=== PATIENT | male | born 1970 | race African-American/Black ===

== ENCOUNTER 2022-06-27 22:58 | Inpatient (IN) | payer OTHER ==
[~2022-06-27] VITALS: Ht 180.3 cm; Wt 97.1 kg
[2022-06-28 00:31] LABS: BASOPHILS % (AUTO) 0.3 % (0.0-2.0); HEMATOCRIT 31 % (39-51); HEMOGLOBIN 9.5 g/dL (13.5-17.5); LYMPHOCYTES # (AUTO) 0.9 K/uL (0.8-4.8); LYMPHOCYTES % (AUTO) 8.6 % (20.0-44.0); MEAN CORPUSCULAR HGB CONC 31 g/dl (31.0-36.0); MEAN CORPUSCULAR VOLUME 80 fL (80-96); MONOCYTES # (AUTO) 0.7 K/uL (0.1-1.30); MONOCYTES % (AUTO) 6.4 % (2.0-12.0); NEUTROPHILS # (AUTO) 9.3 K/uL (1.8-8.9); NEUTROPHILS % (AUTO) 83.7 % (43.0-81.0); PLATELET COUNT (AUTO) 483 K/uL (150-450); WHITE BLOOD COUNT (AUTO) 11.1 K/uL (4.3-11.0)
[2022-06-28 00:36] LABS: CALCIUM, SERUM 6.5 mg/dL (8.5-10.1); CARBON DIOXIDE 20 mmol/L (21-32); CHLORIDE 102 mmol/L (98-107); CREATININE 4.8 mg/dL (0.6-1.3); GLUCOSE 102 mg/dL (74-106); POTASSIUM 3.8 mmol/L (3.5-5.1); SODIUM SERUM 135 mmol/L (136-145); UREA NITROGEN, BLOOD 76 mg/dL (7-18)
[2022-06-28 00:45] LABS: ALANINE AMINOTRANSFERASE 115 U/L (12-78); ALBUMIN 2.3 g/dL (3.4-5.0); ALCOHOL, BLOOD < 3 mg/dL (0-0); ALKALINE PHOSPHATASE 245 U/L (46-116); ASPARTATE AMINOTRANSFERASE 75 U/L (15-37); BILIRUBIN,DIRECT 0.1 mg/dL (0.0-0.2); BILIRUBIN,TOTAL 0.3 mg/dL (0.2-1.0); TOTAL PROTEIN, SERUM 7.5 g/dL (6.4-8.2)
[2022-06-28 01:05] LABS: ACETAMINOPHEN 0 ug/ml (10-30)
[2022-06-28] MEDS ORDERED: hydrALAZINE HCL IV 20 MG VIAL ONE (01:11)
[2022-06-28 01:26] LABS: BILIRUBIN,URINE NEGATIVE (NEGATIVE); COLOR,URINE YELLOW (YELLOW); LEUKOCYTE ESTERASE ,URINE NEGATIVE (NEGATIVE); NITRITE, URINE NEGATIVE (NEGATIVE); PROTEIN,URINE 3+ mg/dl (NEGATIVE); UGLUCOSE NEGATIVE (NEGATIVE); UROBILINOGEN,URINE 0.2 EU/dL (0.2)
[2022-06-28] MEDS ORDERED: hydrALAZINE HCL IV 20 MG VIAL IV ONE ×2 (01:30→02:30)
[2022-06-28] MEDS ORDERED: HALOPERIDOL 5 MG TABLET ONE (01:42)
[2022-06-28] MEDS ORDERED: HALOPERIDOL 1 MG TABLET PO ONE (02:00)
[2022-06-28] MEDS ORDERED: MAGNESIUM HYDROXIDE 30 ML UDC PO PRN (02:30)
[2022-06-28] MEDS ORDERED: MAG HYDROX/AL HYDROX/SIMETH 30 ML UDC PO PRN (02:30)
[2022-06-28] MEDS ORDERED: Z GUARD REMEDY 4 OZ OINT TP PRN (02:30)
[2022-06-28] MEDS ORDERED: MORPHINE SULFATE INJ 2 MG/ML DISP.SYRIN IV PRN (02:30)
[2022-06-28] MEDS ORDERED: IV NS 0.9% 1,000 ML IV PRN ×2 (02:30→09:15)
[2022-06-28 02:34] LABS: BACTERIA,URINE Rare /HPF (None Seen); SQUAMOUS EPITHELIAL CELL,UR Few /HPF (None Seen); WBC,URINE 0-2 /HPF (0-3)
[2022-06-28 04:45] VITALS: BP 167/115
[2022-06-28 05:39] VITALS: BP 167/115
[2022-06-28] MEDS: hydrALAZINE HCL IV 20 MG VIAL IV PRN ×2 (06:00→12:48)
[2022-06-28] MEDS ORDERED: QUET300T2 PO (08:19)
[2022-06-28] MEDS ORDERED: ABILIFY (08:19)
[2022-06-28] MEDS: PANTOPRAZOLE 40 MG TABLET.DR PO SCH (08:29)
[2022-06-28] MEDS: LORAZEPAM INJ 2 MG/ML VIAL IV PRN (08:29)
[2022-06-28 09:05] VITALS: BP 154/103
[2022-06-28] MEDS: AMLODIPINE BESYLATE 5 MG TABLET PO SCH (09:33)
[2022-06-28] MEDS ORDERED: IV NS 0.9% 1,000 ML IV ONE (12:00)
[2022-06-28 13:42] LABS: CALCIUM, SERUM 6.3 mg/dL (8.5-10.1); CARBON DIOXIDE 14 mmol/L (21-32); CHLORIDE 100 mmol/L (98-107); CREATININE 4.7 mg/dL (0.6-1.3); GLUCOSE 137 mg/dL (74-106); SODIUM SERUM 129 mmol/L (136-145); UREA NITROGEN, BLOOD 76 mg/dL (7-18)
[2022-06-28 13:53] LABS: ALANINE AMINOTRANSFERASE 99 U/L (12-78); ALBUMIN 1.8 g/dL (3.4-5.0); ALKALINE PHOSPHATASE 206 U/L (46-116); ASPARTATE AMINOTRANSFERASE 65 U/L (15-37); BILIRUBIN,DIRECT 0.1 mg/dL (0.0-0.2); BILIRUBIN,TOTAL 0.2 mg/dL (0.2-1.0); TOTAL PROTEIN, SERUM 6.4 g/dL (6.4-8.2)
[2022-06-28 16:00] VITALS: BP 185/100
[2022-06-28] MEDS ORDERED: FUROSEMIDE 20 MG/2 ML VIAL IV SCH (17:00)
[2022-06-28] MEDS: hydrALAZINE HCL 50 MG TABLET PO SCH (17:09)
[2022-06-28] MEDS: FUROSEMIDE 100 MG/10 ML VIAL IV SCH ×2 (17:09→20:24)
[2022-06-28] MEDS: NITROGLYCERIN 30 GM TUBE TP SCH ×2 (17:39→20:25)
[2022-06-28] MEDS: ARIPIPRAZOLE 5 MG TABLET PO SCH ×2 (18:15→21:12)
[2022-06-28 18:29] LABS: BASOPHILS # (AUTO) 0.1 K/uL (0.0-0.2); EOSINOPHILS % (AUTO) 1.5 % (0.0-6.0); HEMATOCRIT 27 % (39-51); HEMOGLOBIN 8.4 g/dL (13.5-17.5); LYMPHOCYTES # (AUTO) 0.7 K/uL (0.8-4.8); LYMPHOCYTES % (AUTO) 6.6 % (20.0-44.0); MEAN CORPUSCULAR HGB CONC 31 g/dl (31.0-36.0); MEAN CORPUSCULAR VOLUME 78 fL (80-96); MONOCYTES # (AUTO) 0.9 K/uL (0.1-1.30); MONOCYTES % (AUTO) 8.3 % (2.0-12.0); NEUTROPHILS # (AUTO) 8.8 K/uL (1.8-8.9); NEUTROPHILS % (AUTO) 82.6 % (43.0-81.0); PLATELET COUNT (AUTO) 444 K/uL (150-450); RED BLOOD CELL COUNT(AUTO) 3.41 MIL/uL (4.5-6.0); WHITE BLOOD COUNT (AUTO) 10.6 K/uL (4.3-11.0)
[2022-06-28 20:00] VITALS: BP 157/91
[2022-06-28 21:55] LABS: BAND % (MANUAL) 1 % (0.0-5.0); EOSINOPHILS % (MANUAL) 2 % (0-4); LYMPHOCYTES % (MANUAL) 9 % (16-48); MONOCYTES % (MANUAL) 4 % (0-11.0); NEUTROPHILS % (MANUAL) 84 (42-76)
[2022-06-29] VITALS: BP 162/107
[2022-06-29] MEDS: FUROSEMIDE 100 MG/10 ML VIAL IV SCH (00:32)
[2022-06-29 04:00] VITALS: BP 164/107
[2022-06-29] MEDS: LORAZEPAM INJ 2 MG/ML VIAL IV PRN ×3 (04:34→09:18)
[2022-06-29 06:47] LABS: BASOPHILS # (AUTO) 0.1 K/uL (0.0-0.2); BASOPHILS % (AUTO) 0.7 % (0.0-2.0); EOSINOPHILS % (AUTO) 1.7 % (0.0-6.0); HEMATOCRIT 26 % (39-51); LYMPHOCYTES # (AUTO) 0.6 K/uL (0.8-4.8); LYMPHOCYTES % (AUTO) 5.3 % (20.0-44.0); MEAN CORPUSCULAR HGB CONC 31 g/dl (31.0-36.0); MEAN CORPUSCULAR VOLUME 78 fL (80-96); MONOCYTES # (AUTO) 0.9 K/uL (0.1-1.30); MONOCYTES % (AUTO) 7.7 % (2.0-12.0); NEUTROPHILS # (AUTO) 9.6 K/uL (1.8-8.9); NEUTROPHILS % (AUTO) 84.6 % (43.0-81.0); PLATELET COUNT (AUTO) 409 K/uL (150-450); RED BLOOD CELL COUNT(AUTO) 3.32 MIL/uL (4.5-6.0); WHITE BLOOD COUNT (AUTO) 11.4 K/uL (4.3-11.0)
[2022-06-29 07:07] LABS: CALCIUM, SERUM 6.4 mg/dL (8.5-10.1); CREATININE 4.8 mg/dL (0.6-1.3); MAGNESIUM 1.7 mg/dL (1.8-2.4); PHOSPHORUS 5.6 mg/dL (2.5-4.9); POTASSIUM 3.7 mmol/L (3.5-5.1)
[2022-06-29 07:14] LABS: THYROID STIMULATING HORMONE 1.218 uIU/mL (0.358-3.74)
[2022-06-29] MEDS: PANTOPRAZOLE 40 MG TABLET.DR PO SCH (07:47)
[2022-06-29 08:00] VITALS: BP 175/106
[2022-06-29] MEDS: hydrALAZINE HCL 50 MG TABLET PO SCH ×4 (08:47→17:00)
[2022-06-29] MEDS: AMLODIPINE BESYLATE 5 MG TABLET PO SCH (08:48)
[2022-06-29] MEDS: ARIPIPRAZOLE 5 MG TABLET PO SCH ×3 (08:48→22:03)
[2022-06-29] MEDS: NITROGLYCERIN 30 GM TUBE TP SCH ×2 (08:50→20:32)
[2022-06-29] MEDS ORDERED: BUMETANIDE INJ 16 MG in IV NS 0.9% 16 ML IV ONE (09:30)
[2022-06-29] MEDS: METOLAZONE 2.5 MG TABLET PO SCH (10:19)
[2022-06-29] MEDS: METOPROLOL TARTRATE 50 MG TABLET PO SCH ×2 (10:20→20:32)
[2022-06-29 12:00] VITALS: BP 180/100
[2022-06-29] MEDS: hydrALAZINE HCL IV 20 MG VIAL IV PRN (13:04)
[2022-06-29] MEDS ORDERED: CLONIDINE HCL 0.1 MG TABLET PO PRN ×2 (14:30→20:30)
[2022-06-29] MEDS ORDERED: ENALAPRILAT INJ (1.25 MG/ML) 1.25 MG/ML VIAL IV STA (15:37)
[2022-06-29 16:00] VITALS: BP 180/98
[2022-06-29 20:41] VITALS: BP 166/100
[2022-06-30 01:29] VITALS: BP 152/90
[2022-06-30] MEDS: LORAZEPAM INJ 2 MG/ML VIAL IV PRN ×3 (02:01→22:47)
[2022-06-30 04:12] VITALS: BP 157/109
[2022-06-30 07:13] LABS: BASOPHILS % (AUTO) 0.4 % (0.0-2.0); EOSINOPHILS % (AUTO) 1.9 % (0.0-6.0); HEMATOCRIT 25 % (39-51); HEMOGLOBIN 7.8 g/dL (13.5-17.5); LYMPHOCYTES # (AUTO) 0.7 K/uL (0.8-4.8); LYMPHOCYTES % (AUTO) 7.9 % (20.0-44.0); MEAN CORPUSCULAR HGB CONC 31 g/dl (31.0-36.0); MEAN CORPUSCULAR VOLUME 79 fL (80-96); MONOCYTES # (AUTO) 0.8 K/uL (0.1-1.30); MONOCYTES % (AUTO) 9.6 % (2.0-12.0); NEUTROPHILS # (AUTO) 6.8 K/uL (1.8-8.9); NEUTROPHILS % (AUTO) 80.2 % (43.0-81.0); PLATELET COUNT (AUTO) 405 K/uL (150-450); RED BLOOD CELL COUNT(AUTO) 3.17 MIL/uL (4.5-6.0); WHITE BLOOD COUNT (AUTO) 8.5 K/uL (4.3-11.0)
[2022-06-30 07:35] LABS: ALBUMIN 1.8 g/dL (3.4-5.0); CALCIUM, SERUM 6.4 mg/dL (8.5-10.1); CREATININE 4.9 mg/dL (0.6-1.3); MAGNESIUM 1.7 mg/dL (1.8-2.4); PHOSPHORUS 5.8 mg/dL (2.5-4.9); POTASSIUM 3.8 mmol/L (3.5-5.1)
[2022-06-30] MEDS: PANTOPRAZOLE 40 MG TABLET.DR PO SCH (08:12)
[2022-06-30] MEDS: METOPROLOL TARTRATE 50 MG TABLET PO SCH ×2 (08:12→21:30)
[2022-06-30] MEDS: ARIPIPRAZOLE 5 MG TABLET PO SCH ×3 (08:13→21:29)
[2022-06-30] MEDS: AMLODIPINE BESYLATE 5 MG TABLET PO SCH (08:13)
[2022-06-30] MEDS: METOLAZONE 2.5 MG TABLET PO SCH (08:13)
[2022-06-30] MEDS: hydrALAZINE HCL 50 MG TABLET PO SCH ×3 (08:13→16:11)
[2022-06-30] MEDS: NITROGLYCERIN 30 GM TUBE TP SCH ×2 (08:15→21:00)
[2022-06-30 08:23] LABS: BILIRUBIN,TOTAL 0.2 mg/dL (0.2-1.0); TOTAL PROTEIN, SERUM 6.2 g/dL (6.4-8.2)
[2022-06-30 20:00] VITALS: BP 140/86
[2022-07-01] VITALS: BP 135/93
[2022-07-01] MEDS ORDERED: HALOPERIDOL LACTATE INJ 5 MG/ML VIAL IM ONE (01:30)
[2022-07-01 08:00] VITALS: BP 102/54
[2022-07-01] MEDS: AMLODIPINE BESYLATE 5 MG TABLET PO SCH (08:35)
[2022-07-01] MEDS: ARIPIPRAZOLE 5 MG TABLET PO SCH ×3 (08:35→21:15)
[2022-07-01] MEDS: hydrALAZINE HCL 50 MG TABLET PO SCH ×4 (08:35→17:11)
[2022-07-01] MEDS: METOLAZONE 2.5 MG TABLET PO SCH (08:35)
[2022-07-01] MEDS: PANTOPRAZOLE 40 MG TABLET.DR PO SCH (08:35)
[2022-07-01] MEDS: METOPROLOL TARTRATE 50 MG TABLET PO SCH ×4 (08:36→17:10)
[2022-07-01] MEDS: NITROGLYCERIN 30 GM TUBE TP SCH ×2 (08:41→21:12)
[2022-07-01] MEDS: Magnesium 1GM/D5W 100ML PREMIX 100 ML IV SCH ×2 (09:47→11:04)
[2022-07-01 10:55] LABS: BASOPHILS % (AUTO) 0.3 % (0.0-2.0); EOSINOPHILS % (AUTO) 2.5 % (0.0-6.0); HEMATOCRIT 25 % (39-51); HEMOGLOBIN 7.8 g/dL (13.5-17.5); LYMPHOCYTES # (AUTO) 0.6 K/uL (0.8-4.8); LYMPHOCYTES % (AUTO) 8.5 % (20.0-44.0); MEAN CORPUSCULAR HGB CONC 32 g/dl (31.0-36.0); MEAN CORPUSCULAR VOLUME 79 fL (80-96); MONOCYTES # (AUTO) 0.8 K/uL (0.1-1.30); MONOCYTES % (AUTO) 10.8 % (2.0-12.0); NEUTROPHILS # (AUTO) 5.5 K/uL (1.8-8.9); NEUTROPHILS % (AUTO) 77.9 % (43.0-81.0); PLATELET COUNT (AUTO) 360 K/uL (150-450); RED BLOOD CELL COUNT(AUTO) 3.12 MIL/uL (4.5-6.0); WHITE BLOOD COUNT (AUTO) 7.1 K/uL (4.3-11.0)
[2022-07-01 11:16] LABS: CALCIUM, SERUM 6.2 mg/dL (8.5-10.1); CREATININE 4.9 mg/dL (0.6-1.3); MAGNESIUM 1.7 mg/dL (1.8-2.4); PHOSPHORUS 5.8 mg/dL (2.5-4.9); POTASSIUM 3.6 mmol/L (3.5-5.1)
[2022-07-01 12:00] VITALS: BP 96/58
[2022-07-01] MEDS: LORAZEPAM INJ 2 MG/ML VIAL IV PRN (12:28)
[2022-07-01 16:00] VITALS: BP 153/100
[2022-07-01 19:38] LABS: EOSINOPHILS % (MANUAL) 3 % (0-4); LYMPHOCYTES % (MANUAL) 5 % (16-48); MONOCYTES % (MANUAL) 4 % (0-11.0); NEUTROPHILS % (MANUAL) 88 (42-76)
[2022-07-01 20:00] VITALS: BP 150/82
[2022-07-01] MEDS: ONDANSETRON HCL/PF 4 MG/2 ML VIAL IVP PRN (21:15)
[2022-07-02] VITALS: BP 147/100
[2022-07-02] MEDS: METOPROLOL TARTRATE 50 MG TABLET PO SCH ×5 (00:04→23:47)
[2022-07-02] MEDS: LORAZEPAM INJ 2 MG/ML VIAL IV PRN (03:09)
[2022-07-02 04:00] VITALS: BP 135/98
[2022-07-02 06:14] LABS: CALCIUM, SERUM 6.5 mg/dL (8.5-10.1); CREATININE 4.9 mg/dL (0.6-1.3); MAGNESIUM 2.1 mg/dL (1.8-2.4); POTASSIUM 4.1 mmol/L (3.5-5.1)
[2022-07-02] MEDS: PANTOPRAZOLE 40 MG TABLET.DR PO SCH (07:29)
[2022-07-02 08:00] VITALS: BP 134/85
[2022-07-02] MEDS: ARIPIPRAZOLE 5 MG TABLET PO SCH ×4 (08:15→22:25)
[2022-07-02] MEDS: hydrALAZINE HCL 50 MG TABLET PO SCH ×3 (08:16→16:20)
[2022-07-02] MEDS: AMLODIPINE BESYLATE 5 MG TABLET PO SCH (08:17)
[2022-07-02] MEDS: METOLAZONE 2.5 MG TABLET PO SCH (08:17)
[2022-07-02] MEDS: NITROGLYCERIN 30 GM TUBE TP SCH ×3 (08:20→20:43)
[2022-07-02 11:27] VITALS: BP 149/99
[2022-07-02 15:51] VITALS: BP 154/99
[2022-07-02 20:00] VITALS: BP 147/100
[2022-07-03] VITALS: BP 139/98
[2022-07-03] MEDS: ONDANSETRON HCL/PF 4 MG/2 ML VIAL IVP PRN (02:03)
[2022-07-03] MEDS: LORAZEPAM INJ 2 MG/ML VIAL IV PRN ×2 (02:38→06:57)
[2022-07-03 04:00] VITALS: BP 153/95
[2022-07-03] MEDS: METOPROLOL TARTRATE 50 MG TABLET PO SCH ×2 (05:08→12:00)
[2022-07-03] MEDS: METOLAZONE 2.5 MG TABLET PO SCH (08:29)
[2022-07-03 08:30] VITALS: BP 147/72
[2022-07-03] MEDS: ARIPIPRAZOLE 5 MG TABLET PO SCH (08:30)
[2022-07-03] MEDS: hydrALAZINE HCL 50 MG TABLET PO SCH ×2 (08:30→12:13)
[2022-07-03] MEDS: NITROGLYCERIN 30 GM TUBE TP SCH (08:30)
[2022-07-03] MEDS: PANTOPRAZOLE 40 MG TABLET.DR PO SCH (08:30)
[2022-07-03] MEDS: AMLODIPINE BESYLATE 5 MG TABLET PO SCH (08:30)
== END 2022-07-03 16:50 | disposition home or self-care (01) | DRG 194 ==
LOC: ER 23:08 → EDBD 23:08 → TELE 06-28 04:03
PROVIDERS: ADMIT Nurse Practitioner Acute Care; ATTEND Nurse Practitioner Acute Care
PROC: 05H933Z Insertion of Infusion Device into Right Brachial Vein, Percutaneous Approach (ICD-10-PCS; principal; 2022-06-28)
DX: I13.0 Hypertensive heart and chronic kidney disease with heart failure and stage 1 through stage 4 chronic kidney disease, or unspecified chronic kidney disease (principal); N17.0 Acute kidney failure with tubular necrosis; E43 Unspecified severe protein-calorie malnutrition; E66.2 Morbid (severe) obesity with alveolar hypoventilation; E88.09 Other disorders of plasma-protein metabolism, not elsewhere classified; F12.10 Cannabis abuse, uncomplicated; D50.9 Iron deficiency anemia, unspecified; I16.0 Hypertensive urgency; I50.43 Acute on chronic combined systolic (congestive) and diastolic (congestive) heart failure; F25.0 Schizoaffective disorder, bipolar type; Z20.822 Contact with and (suspected) exposure to COVID-19; R45.851 Suicidal ideations; Z59.00 Homelessness unspecified; N18.9 Chronic kidney disease, unspecified; F31.9 Bipolar disorder, unspecified; Z88.6 Allergy status to analgesic agent; Z88.8 Allergy status to other drugs, medicaments and biological substances; D72.829 Elevated white blood cell count, unspecified; Z68.29 Body mass index [BMI] 29.0-29.9, adult; Z79.899 Other long term (current) drug therapy; F15.10 Other stimulant abuse, uncomplicated; R74.01 Elevation of levels of liver transaminase levels; Z91.199 Patient's noncompliance with other medical treatment and regimen due to unspecified reason; Z91.14 Patient's other noncompliance with medication regimen; F05 Delirium due to known physiological condition; N28.1 Cyst of kidney, acquired; E83.42 Hypomagnesemia; J98.11 Atelectasis; J90 Pleural effusion, not elsewhere classified
CPT/HCPCS: 36415; 71045-TC; 76770-TC; 80048-TC; 80053-TC; 80076-TC; 81001; 82728-TC; 83540-TC; 83735-TC; 83880; 84100-TC; 84443-TC; 85025-TC; 87081-TC; 93307-TC; 97112-TC; 97116-TC; 97530-TC; C9803; G0378; G0480; J0360; J1630; J1940; J2060; J2270; J2405; J3475; J3490; J7030